=== PATIENT | female | born 1995 | race Caucasian/White ===

== ENCOUNTER 2022-01-30 13:47 | Emergency (ER) | payer MEDICAID ==
[2022-01-30] MEDS ORDERED: Ondansetron 4 MG Tab.DIS PO ONE (14:43)
[2022-01-30] MEDS ORDERED: fentaNYL 100 MCG/2 ML SDV IM ONE (14:43)
[2022-01-30 15:55] LABS: CORONAVIRUS COVID-19 NAA NEGATIVE (NEGATIVE)
== END 2022-01-30 17:04 | disposition home or self-care (01) ==
LOC: JP.ED 13:47
DX: J10.1 Influenza due to other identified influenza virus with other respiratory manifestations (principal); Z88.1 Allergy status to other antibiotic agents; Z88.8 Allergy status to other drugs, medicaments and biological substances; Z79.899 Other long term (current) drug therapy; Z90.49 Acquired absence of other specified parts of digestive tract; Z87.891 Personal history of nicotine dependence; Z20.822 Contact with and (suspected) exposure to COVID-19
CPT/HCPCS: 0241U; 96372; 99284; J3010; Q0162